=== PATIENT | female | born 1980 | race Caucasian/White ===

== ENCOUNTER 2016-11-19 00:47 | Inpatient (IN) | payer OTHER ==
[2016-11-19] MEDS ORDERED: LIDOCAINE 1% (PF) 10 MG/ML (30 ML SDV) SQ PRN (01:40)
[2016-11-19] MEDS ORDERED: OXYTOCIN 10 UNIT/ML 1 ML VIAL IM PRN (01:40)
[2016-11-19] MEDS ORDERED: TERBUTALINE 1 MG/ML VIAL SQ PRN (01:40)
[2016-11-19] MEDS ORDERED: CARBOPROST TROMETHAMINE 250 MCG/ML 1 ML AMP IM PRN (01:40)
[2016-11-19] MEDS ORDERED: PENICILLIN G POTASSIUM 5,000,000 UNIT in DEXTROSE 5% IN WATER 100 ML IV STA ×2 (01:40)
[2016-11-19] MEDS ORDERED: METHYLERGONOVINE 0.2 MG/ML 1 ML AMP IM PRN (01:40)
[2016-11-19] MEDS ORDERED: LACTATED RINGERS 1,000 ML IV SCH (01:45)
[2016-11-19 02:09] LABS: Basophils # (A) 0.1 k/uL (0-0.2); Basophils % (A) 0 %; CH 30.8; CHCM 32.9; Eosinophils # (A) 0.1 k/uL (0-0.7); Eosinophils % (A) 1 %; HDW 2.82; HGB 11.4 gm/dL (11.4-16.0); Luc # (Auto) 0.42; Luc % (Auto) 3; Lymphocytes # (A) 1.6 k/uL (1.0-4.8); Lymphocytes % (A) 13 %; MCH 30.7 pg (25.0-35.0); MCHC 32.6 g/dL (31.0-37.0); MCV 94.2 fL (80.0-100.0); Mean Platelet Volume 9.1; Monocytes # (A) 0.6 k/uL (0-1.0); Monocytes % (A) 5 %; Neutrophils # (A) 9.9 k/uL (1.3-7.7); Neutrophils % (A) 78 %; RBC 3.71 m/uL (3.80-5.40); RDW 13.1 % (11.5-15.5); WBC 12.7 k/uL (3.8-10.6)
--- NOTE | 2016-11-19 02:31 | P.HPOB ---
History of Present Illness H&P Date: 11/19/16 Chief Complaint: Labor This is a 35-year-old 7 para 2051 woman with a stated due date of 2016 who presents by EMS from [facility] complaining of contractions. Her history is significant for polydrug abuse. She has not received routine care throughout the . She had a ultrasound at [facility] on 11/07/2016 which gave her this due date. She was also given a single dose of steroids at that visit and instructed to return the next day however she did not keep that appointment. She denies leakage of fluids or vaginal bleeding. She reports onset of painful contractions several hours ago which have gotten increasingly more intense. Upon initial evaluation in labor and delivery triage she is found to be 6 cm dilated. Her group B strep status and blood type are unknown. Her obstetrical history is significant for 2 previous term vaginal deliveries of 7 pound infants and 5 first trimester miscarriages. Review of Systems All systems: negative Past Medical History Past Medical History: No Reported History History of Any Multi-Drug Resistant Organisms: None Reported Past Surgical History: Breast Surgery (Breast augmentation) Past Psychological History: No Psychological Hx Reported Past Alcohol Use History: None Reported Past Drug Use History: Cocaine, Heroin, Marijuana, Opiates Medications and Allergies Home Medications Medication Instructions Recorded Confirmed Type Methadone [Dolophine] 60 mg PO DAILY 11/19/16 11/19/16 History #79/Iron Asp Gly/FA#1 1 each PO DAILY 11/19/16 11/19/16 History [Prenate Elite Tablet] Allergies Allergy/AdvReac Type Severity Reaction Status Date / Time No Known Allergies Allergy Verified 11/19/16 01:19 Exam - Vital Signs Vital signs: Vital Signs Temp Pulse Resp BP Pulse Ox 11/19/16 01:24 96.9 F L 93 15 123/67 97 Intake and Output 11/18/16 11/18/16 11/19/16 14:59 22:59 06:59 Other: Weight 75.75 kg Patient Weight 11/19/16 06:59 Weight 75.75 kg Upon my initial evaluation the patient is admitted into labor and delivery room. She is actively laboring. Targeted physical exam is performed. This is a visibly gravid female with multiple tattoos and piercing. The abdomen is gravid with a fundal height well above the umbilicus consistent with stated gestational age. On cervical examination the cervix is completely dilated with bulging membranes. Artificial rupture of membranes is undertaken and clear fluid is noted. She has a strong urge to push. heart tones are reassuring by external monitoring. She is lloyd every 3 minutes. Results Result Diagrams: 11/19/16 01:52 Abnormal Lab Results - Last 24 Hours (Table) 11/19/16 Range/Units 01:52 WBC 12.7 H (3.8-10.6) k/uL RBC 3.71 L (3.80-5.40) m/uL Neutrophils # 9.9 H (1.3-7.7) k/uL Assessment and Plan (1) Advanced maternal age (AMA) in Status: Acute (2) Spontaneous onset of labor Status: Acute (3) Insufficient care Status: Acute (4) Drug abuse during Status: Acute Plan: 35-year-old 7 para 2052 woman admitted in advanced active labor at 37-0/ 7 weeks gestation. History of minimal care and polydrug use. Group B strep status is unknown. Prophylactic antibiotics have been initiated. lab panel is pending. Urine toxicology screen is pending. status is currently reassuring by external monitoring. I anticipate vaginal delivery.
[2016-11-19 02:36] LABS: Glucose 80 mg/dL (74-99)
[2016-11-19 02:37] LABS: Appearance,Urine Clear (Clear); Bacteria,Urine Many /hpf; Bilirubin,Urine Negative (Negative); Glucose,Urine (UA) Negative (Negative); Ketones,Urine Negative (Negative); Leukocyte Esterase,Urine Large (Negative); Nitrite,Urine Negative (Negative); PH, Urine 6.5 (5.0-8.0); Particle Count 1415; Protein,Urine Negative (Negative); RBC,Urine <1 /hpf (0-5); Specific Gravity,Urine 1.005 (1.001-1.035); Squamous Epithelial Cell,Urine 1 /hpf (0-4); UA Billing (MACRO vs. MICRO) MICRO; Urobilinogen,Urine <2.0 mg/dL (<2.0); WBC,Urine 4 /hpf (0-5)
[2016-11-19 03:08] LABS: Hepatitis B Surface Ag Index 0.05
[2016-11-19] MEDS ORDERED: ZOLPIDEM 5 MG TAB PO PRN (03:24)
[2016-11-19] MEDS ORDERED: ACETAMINOPHEN TAB 325 MG TAB PO PRN (03:24)
[2016-11-19] MEDS ORDERED: WITCH HAZEL 1 EACH MED..PAD TOPICAL PRN (03:24)
[2016-11-19] MEDS ORDERED: diphenhydrAMINE 25 MG CAP PO PRN (03:24)
[2016-11-19] MEDS ORDERED: MEASLES-MUMPS-RUBELLA VACC/PF 12,500 UNIT/0.5 ML VIAL SQ ONE (03:24)
[2016-11-19] MEDS ORDERED: BENZOCAINE/MENTHOL SPRAY 1 GM/SPRAY AEROSOL TOPICAL PRN (03:24)
[2016-11-19] MEDS ORDERED: diphenhydrAMINE 50 MG/ML 1 ML VIAL IVP PRN ×2 (03:24)
[2016-11-19] MEDS ORDERED: LANOLIN CREAM 5 GM TUBE TOPICAL PRN (03:24)
[2016-11-19] MEDS ORDERED: diphenhydrAMINE 50 MG CAP PO PRN (03:24)
[2016-11-19] MEDS ORDERED: SIMETHICONE 80 MG CHEWABLE PO PRN (03:24)
[2016-11-19] MEDS ORDERED: HYDROCORTISONE 2.5% RECTAL CREAM 30 GM TUBE RECTAL PRN (03:24)
--- NOTE | 2016-11-19 03:27 | P.PROBDLV ---
Vaginal Delivery Note - . Vaginal Delivery Note: Findings: Female in the vertex presentation with Apgars of 8 at 1 minute and 9 at 5 minutes weighing 8 lbs. 5 oz., 2495 g. Intact perineum. Intact, three-vessel cord placenta. Delivery summary: This is a 35-year-old 7 para 2051 woman who presented at 37-0/7 weeks gestation in advanced active labor. Please see the history and physical for details. Following admission the patient progressed rapidly to complete cervical dilation. She underwent artificial rupture of membranes and clear fluid was noted. She had an approximately 1 hour second stage of labor. With the patient was somewhat uncontrollable and the infant delivered despite myself and staff being immediately at the bedside and uncontrolled fashion. Infant immediately cried and the nose and mouth were bulb suctioned. The cord was clamped and cut and the was taken to the warmer where Apgars were 8 at 1 minute and 9 at 5 minutes. An intact, three-vessel cord placenta was expressed after a 4 minute third stage of labor. The perineum was inspected and no lacerations were noted. The patient did not tolerate attempts to visualize cervix due to inspected for lacerations. The uterus was massaged and was noted to be firm below the level of the umbilicus. The patient received Pitocin following delivery of the placenta. She did receive a single dose of group B strep prophylactic antibiotics. The was doing well however will be admitted to special care nursery for observation and evaluation. EBL was approximately 100 mL's. All counts were correct. Cord blood sample was taken for maternal blood type unknown.
[2016-11-19] MEDS ORDERED: OXYTOCIN 30 UNITS/500 ML NS 30 UNIT in SALINE 1 500ML.BAG IV SCH (03:30)
[2016-11-19 04:00] VITALS: BMI 26.2
[2016-11-19] MEDS: IBUPROFEN 600 MG TAB PO PRN ×2 (04:12→18:05)
[2016-11-19] MEDS ORDERED: PENICILLIN G POTASSIUM 2,500,000 UNIT in DEXTROSE 5% IN WATER 100 ML IV SCH ×2 (06:00)
[2016-11-19] MEDS: SENNOSIDES-DOCUSATE SODIUM 1 EACH TAB PO SCH ×2 (08:49→20:16)
[2016-11-19] MEDS ORDERED: METHADONE 5 MG TAB PO SCH (09:00)
[2016-11-19] MEDS: NICOTINE 21MG/24HR PATCH TRANSDERM SCH (09:19)
[2016-11-19] MEDS: METHADONE 10 MG TAB PO SCH (09:19)
[2016-11-19] MEDS: SENNA LEAF EXTRACT SYRUP 528 MG/15 ML CUP PO SCH ×2 (09:24→20:01)
[2016-11-20] MEDS: IBUPROFEN 600 MG TAB PO PRN ×2 (04:52→19:51)
[2016-11-20 04:59] LABS: HIV-1/HIV-2 Ab Screen NONREAC (NON REAC)
--- NOTE | 2016-11-20 08:23 | P.PNOBGVD ---
Subjective - Subjective Principal diagnosis: day 1 Interval history: Feeling well other than a headache this morning. Lochia is decreasing. Patient reports: Reports appetite normal, Reports voiding normally, Reports pain well controlled, Reports ambulating normally [place]: doing well, in NICU Objective - Latest Vital Signs Latest vital signs: Vital Signs Temp Pulse Resp BP Pulse Ox 11/19/16 23:47 98.2 F 88 16 114/73 11/19/16 15:56 98.1 F 72 17 130/78 11/19/16 08:30 97.8 F 72 17 114/72 98 - Exam Extremities: Present: normal Abdomen: Present: normal appearance, soft Uterus: Present: normal, firm Assessment and Plan (1) Advanced maternal age (AMA) in Current Visit: Yes Status: Acute Code(s): [id number] - SNOMED Code(s): 583298411 (2) Spontaneous onset of labor Current Visit: Yes Status: Acute Code(s): KVJ7692 - SNOMED Code(s): 50275299 (3) Insufficient care Current Visit: Yes Status: Acute Code(s): O09.30 - SUPRVSN OF PREG W INSUFFICIENT ANTENAT CARE, UNSP TRIMESTER SNOMED Code(s): 4027625358097 (4) Drug abuse during Current Visit: Yes Status: Acute Code(s): O99.320 - DRUG USE COMPLICATING , UNSPECIFIED TRIMESTER; F19.10 - OTHER PSYCHOACTIVE SUBSTANCE ABUSE, UNCOMPLICATED SNOMED Code(s): 418455525 (5) Normal spontaneous vaginal delivery Narrative/Plan: day #1 status post normal spontaneous vaginal delivery. Recovering well. Anticipate discharge tomorrow. Current Visit: Yes Status: Acute Code(s): O80 - ENCOUNTER FOR FULL-TERM UNCOMPLICATED DELIVERY SNOMED Code(s): 81058731
[2016-11-20] MEDS: METHADONE 10 MG TAB PO SCH (08:52)
[2016-11-20] MEDS: NICOTINE 21MG/24HR PATCH TRANSDERM SCH (08:54)
[2016-11-20] MEDS: SENNA LEAF EXTRACT SYRUP 528 MG/15 ML CUP PO SCH (08:54)
[2016-11-20] MEDS: SENNOSIDES-DOCUSATE SODIUM 1 EACH TAB PO SCH (20:38)
[2016-11-20 23:48] VITALS: RESP 16
[2016-11-21] MEDS: IBUPROFEN 600 MG TAB PO PRN (03:15)
[2016-11-21 07:27] VITALS: BP 132/72; PULSE 88; TEMP 97.8
[2016-11-21] MEDS: METHADONE 10 MG TAB PO SCH (08:48)
[2016-11-21] MEDS: SENNOSIDES-DOCUSATE SODIUM 1 EACH TAB PO SCH (10:18)
[2016-11-21] MEDS: NICOTINE 21MG/24HR PATCH TRANSDERM SCH (10:19)
[2016-11-21] MEDS ORDERED: MEASLES-MUMPS-RUBELLA VACC/PF 12,500 UNIT/0.5 ML VIAL SQ ONE (10:30)
--- NOTE | 2016-11-21 10:52 | P.DS ---
Providers Date of admission: 11/19/16 01:29 Expected date of discharge: 11/21/16 Attending physician: April Johnson Primary care physician: Stated None - Discharge Diagnosis(es) (1) Advanced maternal age (AMA) in Current Visit: Yes Status: Acute (2) Spontaneous onset of labor Current Visit: Yes Status: Acute (3) Insufficient care Current Visit: Yes Status: Acute (4) Drug abuse during Current Visit: Yes Status: Acute (5) Normal spontaneous vaginal delivery Current Visit: Yes Status: Acute Hospital Course: This is a 35-year-old 7 now para 3043 woman who [facility]. She had an estimated due date from a recent ultrasound of 417 or 2016. She was admitted when she was 6 cm dilated and rapidly progressed to complete cervical dilation. She received group B strep prophylactic antibiotics for group B strep status unknown. She reached complete cervical dilation and had an approximately 45 minute second stage of labor to deliver a liveborn female over an intact perineum weighing 5 lbs. 6 oz. The infant was admitted for observation to the special care nursery. The patient's course was unremarkable. The her blood work was unremarkable except for rubella nonimmune status. Her blood type was positive. By day #2 she was recovering well she is receiving her methadone and she is discharged back to her treatment facility with routine instructions for care and follow-up at 6 weeks. Procedures: Normal spontaneous vaginal delivery Patient Condition at Discharge: Good Plan - Discharge Summary Discharge Medication List Methadone [Dolophine] 60 mg PO DAILY 11/19/16 [History] #79/Iron Asp Gly/FA#1 [Prenate Elite Tablet] 1 each PO DAILY 11/19/16 [ History] Follow up Appointment(s)/Referral(s): April Johnson MD [STAFF PHYSICIAN] - 6 Weeks Activity/Diet/Wound Care/Special Instructions: Follow-up in the office in 6 weeks . Call with any concerning signs or symptoms including heavy vaginal bleeding, severe abdominal pain, fever greater than 101, swelling or redness of the lower extremities, foul vaginal discharge, or signs of depression. Nothing in the vagina for 6 weeks after delivery, specifically no intercourse. Discharge Disposition: HOME SELF-CARE
== END 2016-11-21 11:32 | disposition home or self-care (01) | DRG 775 ==
LOC: FBPOP 00:47 → 4FBP 01:29
PROVIDERS: ADMIT Obstetrics & Gynecology; ATTEND Obstetrics & Gynecology
PROC: 10E0XZZ Delivery of Products of Conception, External Approach (ICD-10-PCS; principal; 2016-11-19)
PROC: 10907ZC Drainage of Amniotic Fluid, Therapeutic from Products of Conception, Via Natural or Artificial Opening (ICD-10-PCS; 2016-11-19)
PROC: 3E0134Z Introduction of Serum, Toxoid and Vaccine into Subcutaneous Tissue, Percutaneous Approach (ICD-10-PCS; 2016-11-21)
DX: O99.324 Drug use complicating childbirth (principal); F19.10 Other psychoactive substance abuse, uncomplicated; O09.33 Supervision of pregnancy with insufficient antenatal care, third trimester; O26.20 Pregnancy care for patient with recurrent pregnancy loss, unspecified trimester; R51 Headache; O09.523 Supervision of elderly multigravida, third trimester; Z23 Encounter for immunization; Z3A.37 37 weeks gestation of pregnancy; Z37.0 Single live birth; Z79.899 Other long term (current) drug therapy; Z91.19 Patient's noncompliance with other medical treatment and regimen
CPT/HCPCS: 59025; 80306; 81001; 82947; 85025; 86762; 86850; 86900; 86901; 87340; 87389; 88307; 90707; 99203